=== PATIENT | female | born 1990 | race Caucasian/White ===

== ENCOUNTER → 2021-08-12 15:27 | Outpatient (BNVA) | payer MEDICAID, SELFPAY | PROVIDERS: PCP Family Medicine; Visit Provider Nurse Practitioner Family | DX: S89.91XD Unspecified injury of right lower leg, subsequent encounter (principal); M79.604 Pain in right leg; G89.29 Other chronic pain; F11.20 Opioid dependence, uncomplicated | CPT/HCPCS: 99202 ==

== ENCOUNTER → 2021-11-15 13:56 | Outpatient (BNVA) | payer MEDICAID, SELFPAY | PROVIDERS: PCP Family Medicine; Visit Provider Internal Medicine Endocrinology, Diabetes & Metabolism | DX: E10.65 Type 1 diabetes mellitus with hyperglycemia (principal) | CPT/HCPCS: 82947; 83036 ==

== ENCOUNTER → 2021-11-17 10:03 | Outpatient (BNVA) | payer MEDICAID, SELFPAY | PROVIDERS: PCP Family Medicine; Visit Provider Registered Nurse Diabetes Educator | DX: E10.65 Type 1 diabetes mellitus with hyperglycemia (principal) | CPT/HCPCS: 82947; 99211 ==

== ENCOUNTER → 2021-11-25 12:26 | Outpatient (BNVA) | payer MEDICAID, SELFPAY | PROVIDERS: PCP Family Medicine; Visit Provider Registered Nurse Diabetes Educator | DX: E10.65 Type 1 diabetes mellitus with hyperglycemia (principal) | CPT/HCPCS: 99211 ==

== ENCOUNTER → 2021-12-14 11:13 | Outpatient (BNVA) | payer MEDICAID, SELFPAY | PROVIDERS: PCP Family Medicine; Visit Provider Dietitian, Registered | DX: E10.65 Type 1 diabetes mellitus with hyperglycemia (principal) | CPT/HCPCS: 97802 ==

== ENCOUNTER → 2022-01-03 07:43 | Outpatient (REF) | payer MEDICAID, SELFPAY ==
--- NOTE | ~2022-01-03 | NM_ITS ---
EXAMINATION: RADIONUCLIDE SOLID FOOD GASTRIC EMPTYING 4-HOUR STUDY CLINICAL INFORMATION: Vomiting without nausea. COMPARISON: No previous gastric emptying study is available for comparison. TECHNIQUE: A standard meal consisting of 4 oz of Egg Beaters brand equivalent tagged with 1 mCi Tc-99m Sulfur Colloid, 8 oz water and 2 slices of toast with jelly was administered orally to the patient. Images were obtained using a dual head gamma camera in the anterior and posterior projections over of the stomach immediately post ingestion and at hourly intervals up to 4 hours post ingestion. The anterior and posterior counts at each time interval were averaged using the geometric mean and expressed as percentage of the immediate post ingestion counts. FINDINGS: There is good visualization of activity in the stomach immediately post ingestion. As the study progresses, there is good clearance of activity from the stomach and visualization of progressively increasing small bowel activity. By the end of the study, there is almost no retention noted in the stomach. Retention in the stomach at each time interval was: 1 hour 100% (normal 37%-90%) 2 hours 96% (normal 30%-60%) 3 hours 75% 4 hours 6% (normal 0%-10%) NM/NM gastric emptying study IMPRESSION: Normal 4-hour solid food gastric emptying study.
== END ==
LOC: HO.NUCMED 07:43
PROVIDERS: Visit Provider Internal Medicine
DX: R11.11 Vomiting without nausea (principal)
CPT/HCPCS: 78264; A9541

== ENCOUNTER → 2022-01-30 11:55 | Outpatient (BNVA) | payer MEDICAID, SELFPAY | PROVIDERS: PCP Family Medicine; Visit Provider Dietitian, Registered | DX: E10.65 Type 1 diabetes mellitus with hyperglycemia (principal) | CPT/HCPCS: 97803 ==

== ENCOUNTER → 2022-02-14 13:03 | Outpatient (BNVA) | payer MEDICAID, SELFPAY | PROVIDERS: PCP Family Medicine; Visit Provider Internal Medicine Endocrinology, Diabetes & Metabolism | DX: E10.65 Type 1 diabetes mellitus with hyperglycemia (principal) | CPT/HCPCS: 82947; 83036; 99212 ==

== ENCOUNTER → 2022-04-12 12:30 | Outpatient (BNVA) | payer MEDICAID, SELFPAY | PROVIDERS: PCP Family Medicine; Visit Provider Dietitian, Registered | DX: E10.65 Type 1 diabetes mellitus with hyperglycemia (principal) | CPT/HCPCS: 97803 ==

== ENCOUNTER → 2022-06-15 13:56 | Outpatient (BNVA) | payer MEDICAID, SELFPAY | PROVIDERS: PCP Family Medicine; Visit Provider Registered Nurse Diabetes Educator | DX: E10.65 Type 1 diabetes mellitus with hyperglycemia (principal) | CPT/HCPCS: 99211 ==

== ENCOUNTER → 2022-07-18 11:34 | Outpatient (BNVA) | payer MEDICAID, SELFPAY | PROVIDERS: PCP Family Medicine; Visit Provider Registered Nurse Diabetes Educator | DX: E10.65 Type 1 diabetes mellitus with hyperglycemia (principal) | CPT/HCPCS: 99211; 99499 ==

== ENCOUNTER → 2022-09-07 10:00 | Outpatient (BNVA) | payer MEDICAID, SELFPAY | PROVIDERS: PCP Family Medicine; Visit Provider Registered Nurse Diabetes Educator | DX: E10.65 Type 1 diabetes mellitus with hyperglycemia (principal); Z96.41 Presence of insulin pump (external) (internal); Z79.4 Long term (current) use of insulin | CPT/HCPCS: 99211 ==

== ENCOUNTER → 2022-10-27 14:34 | Outpatient (BNVA) | payer MEDICAID, SELFPAY | PROVIDERS: PCP Family Medicine; Visit Provider Internal Medicine Endocrinology, Diabetes & Metabolism | DX: E10.65 Type 1 diabetes mellitus with hyperglycemia (principal); Z96.41 Presence of insulin pump (external) (internal) | CPT/HCPCS: 82947; 83036; 99212 ==

== ENCOUNTER 2023-08-09 10:36 | Outpatient (AMB) | payer MEDICAID, SELFPAY ==
[2023-08-09 10:45] VITALS: BP 170/98; PULSE 122; BMI 30.9
--- NOTE | 2023-08-09 10:45 | MHC.OFFVIS ---
Intake Vital Signs 08/09/23 10:45 Height 5 ft 1 in Weight 163 lb 9.328 oz BMI 30.9 BP 170/98 H Blood Pressure Location Lt brachial Position Sitting Pulse 122 H Pulse Source Pulse Oximeter Intake Visit Reasons: f/u Type 1 DM-CONFIRMED Intake Note: Patient present today to follow up on Type 1 Diabetes Mellitus. Patient receives DME supplies through: [employer] Patient receives Omnipod supplies through: Pharmacy Last Diabetic Eye exam: 10/2022 Last Podiatry Visit: None Random Glucose: 134 mg/dl HgA1C: 9.3% Silk Screen Operator Required: No Accompanied by: Self / Same As Patient Allergies amoxicillin [AMOXICILLIN] Allergy (Mild, Verified 08/09/23 11:10) HIVES Medication List - Last Reconciled 08/09/23 by Eren To MD acetone (urine) test (Ketostix strips) As directed albuterol sulfate 90 mcg/actuation (ProAir HFA) 2 inhalations inhalation ONCE PRN amlodipine 10 mg PO DAILY blood sugar diagnostic (FreeStyle Lite Strips) As directed at least 3 times daily glucose 4 grams PO Q15M PRN insulin lispro-aabc (Lyumjev KwikPen U-100 Insulin) 6 units (0.06 mL) subcut TID insulin lispro-aabc (Lyumjev U-100 Insulin) use up to 50 units daily in pump subcutaneously use as directed; use up to 50 units daily in pump subcutaneously ; insulin pump cart,auto,BT-cntr (Omnipod 5 G6 Intro Kit (Gen 5) subcutaneous cartridge with controller) As directed insulin pump cart,automated,BT (Omnipod 5 G6 Pods (Gen 5) subcutaneous cartridge) As directed methadone 125 mg PO DAILY trazodone 100 - 200 mg PO BEDTIME HPI HPI Comments History of Present Illness Details 33 YO female with is seen in consultation for T1DM at the request of PCP. Saw peds endocrine in past. Initially diagnosed with T1DM in age 9 when presented with polyuria and polydypsia . Was initially started on treatment with insulin . Current regimen: On lyumjev delivered by Omnipod 5 pump settings Total daily dose of insulin 30.2 units with 77% basal and 23% bolus. She is using the automated mode 48% of the time and the manual mode 52% of the time. Total carbohydrates is 105.6 Basal rate(s) (units/hour) : 12 AM to 12 AM? 0.65 units / hr Bolus setting Insulin Carbohydrate Ratio (s) 12 AM? to 11 AM? 1:12 11 AM to 12 AM 1:15 Correction Factor / Sensitivity Factor 12 AM to 12 AM? 1:50 Active Insulin Time:? 4 hours Target(s): 12 AM to 12 AM? 120 mg/dL ?Correction threshold 12 AM to 12 AM? 120 mg/dL Review of Dexcom download shows average glucose to be 278 with standard deviation of 104. 26% range with 18% hypoglycemia and 55% very hyperglycemic and 0% hypoglycemia with 0% very low hypoglycemia. Dexcom data pattern shows continuous elevated point cares over 200. From pump download, it appears the patient is not bolusing for several hours Pa Reports low sugars variable but multiple days . Treats lows with juice . Checks sugar after to ensure it is rising. No Family history of autoimmunity in Has eyes checked yearly, last eye exam , no retinopathy. Denies neuropathy, Denies nephropathy, not on RAFY/ARB. . does not Has HLD, Denies history of CAD. Had diabetes education Diet/Carb counting: knows how Has prior episodes of DKA 2 in last 6 mos . Denies prior severe episodes of hypoglycemia requiring help or hospitalization. Labs: [facility] Medical History (Updated 04/12/22 @ 13:[address], LDN) HTN (hypertension) Type 1 diabetes Surgical History History of surgery Hx of section Family History Father No problems noted. Mother No problems noted. Social History Household Members: Spouse and Children Alcohol intake: current Alcohol intake frequency: holidays/special occasions only Patient Tobacco Use Status: Former Tobacco user Quit Date: Over 5 years Physical Exam Vital Signs: Last Vital Signs Pulse 122 H 08/09/23 10:45 BP 170/98 H 08/09/23 10:45 BMI result Body Mass Index 30.9 Absence of Cushingoid features. Absence of acromegalic features. Neck exam reveals nl size thyroid about 15 gms. No thyroid nodules palpable. No carotid bruits present. Lungs CTA. Heart S1 S2, Reg R/R. No M/R/ G. Skin exam reveals absence of vitiligo or acanthosis nigricans. Abdominal exam reveals Soft NT/ND with NA BS. No organomegaly present. Extrem Other: Visual exam of foot performed. No ulcerations or open lesions. No onchomycosis, no callouses.Pulses 2 + distally. Sensation intact to monofilament exam. Vibratory sensation is decresed at 10 seconds in right, 10 seconds in left with 128 Hz tuning fork Results AMB Hemoglobin A1c AMB Hemoglobin A1c 9.3 % Last Edit by Rylie William on 08/09/23 11:10 Results Reviewed Results Reviewed: Laboratory Last Values Glucose (Clinic) 134 mg/dL (60-115) H 08/09/23 10:54 Hgb A1c (Clinic) 9.3 % (4.0-6.0) H 08/09/23 10:58 Assessment & Plan Assessment & Plan (1) Type 1 diabetes: Comment: Per conversation, it appears that Pt overtreats hypoglycemia and then has a meal but forgets to take prandial insulin leading to hyperglycemia. Reviewed hypoglycemia protocol during this appointment, importance of waiting 15 minutes after treating hypoglycemia and rechecking blood sugar to assure that it is rising. Importance of taking prandial insulin according to carb ratio prescribed by physician was discussed to prevent hyperglycemia. Have a yogurt or 1 slice of bread with protein at bedtime or cup of milk at bedtime to prevent fasting blood glucose until further evaluation by your doctor or senior information developer for further assessment. Code(s): E10.9 - Type 1 diabetes mellitus without complications Qualifiers: Diabetes mellitus complication status: with hyperglycemia Qualified Code(s): E10.65 - Type 1 diabetes mellitus with hyperglycemia Plan This is a 32-year-old white female with a history of type 1 diabetes being treated with Omnipod 5 pump with poor glycemic control and no known microvascular or macrovascular complications The plan is to urge patient to stay in automode for longer period of time. She should also bolus before meals which is not doing. Should follow up with director of religious activities. . We talked about the possibility of switching pumps from an Omnipod 5 to an ilet which might be more manageable. Once again went over the relationship a poor glycemic control to development and progression complications. I will check lipid profile and microalbumin to creatinine ratio Orders: Orders AMB Hemoglobin A1c Today E10.9 - Type 1 diabetes mellitus without complications Microalbumin, Random (w Creat) Today E10.9 - Type 1 diabetes mellitus without complications Lipid Panel Today E10.9 - Type 1 diabetes mellitus without complications Medications: New blood-glucose meter (FreeStyle Lite Meter kit) As directed 1 ea 0RF Refilled blood sugar diagnostic (FreeStyle Lite Strips) As directed at least 3 times daily 100 ea 7RF Coding Level of Care Code Est Pt Level 4 (14901) Diagnoses Type 1 diabetes mellitus with hyperglycemia E10.65 Diabetes mellitus complication status: with hyperglycemia
[2023-08-09 11:10] LABS: Glucose, Whole Blood 134 mg/dL (60-115)
== END 2023-08-09 11:42 | disposition home or self-care (01) ==
PROVIDERS: PCP Family Medicine; Visit Provider Internal Medicine Endocrinology, Diabetes & Metabolism
DX: E10.65 Type 1 diabetes mellitus with hyperglycemia (principal); E10.9 Type 1 diabetes mellitus without complications
CPT/HCPCS: 99214

== ENCOUNTER → 2023-08-09 10:36 | Outpatient (BNVA) | payer MEDICAID, SELFPAY | PROVIDERS: Visit Provider Internal Medicine Endocrinology, Diabetes & Metabolism | DX: Z46.81 Encounter for fitting and adjustment of insulin pump (principal); E10.65 Type 1 diabetes mellitus with hyperglycemia; Z79.4 Long term (current) use of insulin | CPT/HCPCS: 82947; 83036; 99212 ==

== ENCOUNTER 2024-04-10 13:36 | Outpatient (AMB) | payer MEDICAID, SELFPAY ==
--- NOTE | 2024-04-10 13:37 | A.OFFVIS_ITS ---
Vital Signs 04/10/24 13:39 Height 5 ft 1 in Weight 130 lb 1.164 oz BMI 24.6 BP 140/90 H Blood Pressure Location Rt brachial Position Sitting Pulse 110 H Pulse Source Pulse Oximeter Intake Visit Reasons: T1DM/LVM Intake Note: New Patient presents today to established treatment for Type 1 Diabetes Mellitus: Last Diabetic Eye Exam: DUE Last Podiatry Exam- Does not see a Cash Posting Representative Random Glucose- 242 mg/dL, Today Most recent HbA1c- >14.0 %, 04/10/2024 Linotype Mechanic Required: No Accompanied by: Self / Same As Patient Allergies amoxicillin [AMOXICILLIN] Allergy (Mild, Verified 04/10/24 14:01) HIVES HPI Comments Details: 34 YO female with is seen in f/u for T1 DM. She was last seen by Dr. To in 2022 Saw peds endocrine in past. Initially diagnosed with T1DM in age 9 when presented with polyuria and polydypsia . Was initially started on treatment with insulin . Current regimen: She has been off pump and would like to go back on. She does not bring in her sensor today and has not been testing regularly. On lyumjev delivered by Omnipod 5 previous pump settings Basal rate(s) (units/hour) : 12 AM to 12 AM? 0.65 units / hr Bolus setting Insulin Carbohydrate Ratio (s) 12 AM? to 11 AM? 1:1211 AM to 12 AM 1:15 Correction Factor / Sensitivity Factor 12 AM to 12 AM? 1:50 Active Insulin Time:? 4 hours Target(s): 12 AM to 12 AM? 120 mg/dL?Correction thr eshold 12 AM to 12 AM? 120 mg/dL Review of Dexcom download shows average glucose to be 278 with standard deviation of 104. 26% range with 18% hypoglycemia and 55% very hyperglycemic and 0% hypoglycemia with 0% very low hypoglycemia. Dexcom data pattern shows continuous elevated point cares over 200. From pump download, it appears the patient is not bolusing for several hours Pa Reports low sugars variable but multiple days . Treats lows with juice . Checks sugar after to ensure it is rising. No Family history of autoimmunity in Has eyes checked yearly, last eye exam , no retinopathy. Denies neuropathy, Denies nephropathy, not on RAFY/ARB. . does not Has HLD, Denies history of CAD. Had diabetes education Diet/Carb counting: knows how . [facility] Medical History HTN (hypertension) Type 1 diabetes Surgical History History of surgery Hx of section Family History Father No problems noted. Mother No problems noted. Social History Household Members: Spouse and Children Alcohol intake: current Alcohol intake frequency: holidays/special occasions only Patient Tobacco Use Status: Former Tobacco user Physical Exam Vital Signs: Last Vital Signs Pulse 110 H 04/10/24 13:39 BP 140/90 H 04/10/24 13:39 BMI result Body Mass Index 24.6 Const General: cooperative and healthy appearing Nutritional Appearance: average body habitus Orientation/consciousness: oriented to person Limitations: no limitations Neck Neck: Yes normal visual inspection Thyroid: Thyroid normal Resp Effort & Inspection: normal respiratory effort Cardio Jugular venous distension: no JVD Rate: regular rate Heart sounds: S1 normal heart sound present and S2 normal heart sound present Neuro General: oriented to person Extrem Other: Visual exam of foot performed. No ulcerations or open lesions. No onchomycosis, no callouses. Sensation intact to monofilament exam. Vibratory sensation is normal with 128 Hz tuning fork. Results AMB Hemoglobin A1c AMB Hemoglobin A1c > 14.0 % Last Edit by EZEQUIEL Espinoza on 04/10/24 14 :00 Results Reviewed Results Reviewed: Laboratory Last Values Glucose (Clinic) 242 mg/dL (60-115) H 04/10/24 13:44 Hgb A1c (Clinic) > 14.0 % (4.0-6.0) H 04/10/24 13:58 Assessment & Plan Assessment & Plan (1) Type 1 diabetes: Comment: Code(s): E10.9 - Type 1 diabetes mellitus without complications Category: Medical Qualifiers: Diabetes mellitus complication status: with hyperglycemia Qualified Code(s): E10.65 - Type 1 diabetes mellitus with hyperglycemia Plan: type 1 with poor control. Goal to get her back using sensor and pump. She will restart pump.She will rtc in one-rtwo weeks to review numbers. Changed from lantus to deglucec Patient teaching: The patient was counseled to always carry a source of sugar and on the rule of 15's: Take 3 glucose tablets and repeat again in 15 minutes if blood sugar is not in normal range. Continue to repeat every 15 minutes until blood sugar is normal. The patient was counseled to achieve a target A1C of 7% (154 avg). Fasting blood sugars should be 90-130 in the morning and less than 180 two hours after meals. Reviewed the relationship between poor diabetic control and the developement of complications Symptoms of DKA were reviewed: early: frequent urination, dry mouth, ketones in the urine, severe symptoms: abdominal pain, nausea, vomiting and weakness. It is important to hydrate with sugar free liquids every 30 minutes and bring the sugars down to normal levels. Orders: Orders Comprehensive Met. Panel 04/10/24 E10.65 - Type 1 diabetes mellitus with hyperglycemia Lipid Panel 04/10/24 E10.65 - Type 1 diabetes mellitus with hyperglycemia Microalbumin, Random (w Creat) 04/10/24 E10.65 - Type 1 diabetes mellitus with hyperglycemia Thyroid Stimulating Hormone 04/10/24 E10.65 - Type 1 diabetes mellitus with hyperglycemia Vitamin D 25-OH Total 04/10/24 E55.9 - Vitamin D deficiency, unspecified AMB Hemoglobin A1c 04/10/24 E11.9 - Type 2 diabetes mellitus without complications Creatinine Urine 04/10/24 E10.65 - Type 1 diabetes mellitus with hyperglycemia Medications: New insulin degludec (Tresiba FlexTouch U-200 insulin) 20 units (0.1 mL) subcut BEDTIME 3 mL 5RF 30 days E10.65 - Type 1 diabetes mellitus with hyperglycemia pen needle, diabetic (BD Ultra-Fine Magy Pen Needle) As directed qid dispense 2 boxes of 100 2 ea 5RF blood-glucose sensor (DexCityVoter G6 Sensor device) As directed 3 ea 5RF E10.65 - Type 1 diabetes mellitus with hyperglycemia insulin U-500 syringe-needle (BD Insulin Syringe U-500) As directed tid as needed 2 ea 5RF E10.65 - Type 1 diabetes mellitus with hyperglycemia Changed From acetone (urine) test As directed 100 ea 5RF E10.9 - Type 1 diabetes mellitus without complications To acetone (urine) test (Ketostix strips) As directed 100 ea 5RF E10.9 - Type 1 diabetes mellitus without complications From blood sugar diagnostic As directed at least 3 times daily 100 ea 7RF To blood sugar diagnostic (FreeStyle Lite Strips) As directed at least 3 times daily 100 ea 7RF From amlodipine 10 mg PO DAILY I10 - Essential (primary) hypertension To amlodipine 10 mg (2 x 5 mg) PO DAILY 60 tabs 5RF 30 days I10 - Essential (primary) hypertension From insulin lispro-aabc 6 units (0.06 mL) subcut TID 15 mL 5RF To insulin lispro-aabc (Lyumjev KwikPen U-100 Insulin) 6 units (0.06 mL) subcut TID 15 mL 5RF Coding Level of Care Code Est Pt Level 4 (76471) Complex EM visit Add On G2211 Diagnoses Type 1 diabetes mellitus with hyperglycemia E10.65 Diabetes mellitus complication status: with hyperglycemia
[2024-04-10 13:39] VITALS: BP 140/90; PULSE 110; BMI 24.6
[2024-04-10 13:49] LABS: Glucose, Whole Blood 242 mg/dL (60-115)
== END 2024-04-10 14:18 | disposition home or self-care (01) ==
PROVIDERS: PCP Family Medicine; Visit Provider Nurse Practitioner Adult Health
DX: E10.65 Type 1 diabetes mellitus with hyperglycemia (principal)
CPT/HCPCS: 99214

== ENCOUNTER → 2024-04-10 13:36 | Outpatient (BNVA) | payer MEDICAID, SELFPAY | PROVIDERS: PCP Family Medicine; Visit Provider Nurse Practitioner Adult Health | DX: E10.65 Type 1 diabetes mellitus with hyperglycemia (principal); E55.9 Vitamin D deficiency, unspecified; Z46.81 Encounter for fitting and adjustment of insulin pump | CPT/HCPCS: 82947; 83036; 99212 ==

== ENCOUNTER 2024-07-22 12:31 | Outpatient (AMB) | payer MEDICAID, SELFPAY ==
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
[2024-07-22 12:39] VITALS: BP 170/90; PULSE 68; BMI 24.2
[2024-07-22 12:54] LABS: Glucose, Whole Blood 182 mg/dL (60-115)
== END 2024-07-22 13:34 | disposition home or self-care (01) ==
LOC: HO.ENCR 12:31
PROVIDERS: PCP Family Medicine; Visit Provider Nurse Practitioner Adult Health
DX: Z13.9 Encounter for screening, unspecified (principal); E10.65 Type 1 diabetes mellitus with hyperglycemia; I10 Essential (primary) hypertension
CPT/HCPCS: 99215

== ENCOUNTER → 2024-07-22 12:31 | Outpatient (BNVA) | payer MEDICAID, SELFPAY | PROVIDERS: PCP Family Medicine; Visit Provider Nurse Practitioner Adult Health | DX: E10.65 Type 1 diabetes mellitus with hyperglycemia (principal); I10 Essential (primary) hypertension | CPT/HCPCS: 82947; 83036; 99212 ==

== ENCOUNTER 2024-07-31 10:50 | Outpatient (AMB) | payer MEDICAID, SELFPAY ==
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
[2024-07-31 10:55] VITALS: BP 132/90; PULSE 127; BMI 23.7
[2024-07-31 11:06] LABS: Glucose, Whole Blood 120 mg/dL (60-115)
== END 2024-07-31 11:29 | disposition home or self-care (01) ==
LOC: HO.ENCR 10:51
PROVIDERS: PCP Family Medicine; Visit Provider Nurse Practitioner Adult Health
DX: E10.65 Type 1 diabetes mellitus with hyperglycemia (principal)
CPT/HCPCS: 99214

== ENCOUNTER → 2024-07-31 10:50 | Outpatient (BNVA) | payer MEDICAID, SELFPAY | PROVIDERS: PCP Family Medicine; Visit Provider Nurse Practitioner Adult Health | DX: E10.65 Type 1 diabetes mellitus with hyperglycemia (principal); F32.A Depression, unspecified; F11.20 Opioid dependence, uncomplicated; Z79.899 Other long term (current) drug therapy; Z79.4 Long term (current) use of insulin | CPT/HCPCS: 82947; 99212 ==

== ENCOUNTER → 2024-08-27 11:00 | Outpatient (BNVA) | payer MEDICAID, SELFPAY | PROVIDERS: PCP Family Medicine; Visit Provider Nurse Practitioner Adult Health | DX: E10.65 Type 1 diabetes mellitus with hyperglycemia (principal); F11.20 Opioid dependence, uncomplicated; Z79.4 Long term (current) use of insulin; Z79.899 Other long term (current) drug therapy | CPT/HCPCS: 99212 ==